=== PATIENT | female | born 2000 | race Two or more races ===

== ENCOUNTER 2020-03-25 15:30 | Emergency (ER) | payer MEDICAID ==
[~2020-03-25] VITALS: Ht 162.6 cm; Wt 63.5 kg
[2020-03-25 16:10] VITALS: BP 108/68
--- NOTE | 2020-03-25 16:20 | Emergency Room Report ---
History of Present Illness General Chief Complaint: Upper Respiratory Illness Source: Patient Present Illness HPI 20-year-old female presents to the emergency department complaining of dry persistent cough, sore throat and nasal congestion with pressure that she rates as 6 out of 10 severity x4 days. Patient reports initially she lost her voice but she now got it back. She reports hot flashes but denies having a measured fever. Patient reports she has an ill contact as her nephew had URI symptoms the week prior. Patient denies any significant past medical history she denies history of asthma, COPD or smoking. She reports she was tested for COVID-19 a week and a half ago and was negative. She reports some relief of her symptoms with [id number] NyQuil. She denies headache, photophobia, neck pain/stiffness. When not coughing, she denies having chest tightness at rest but reports several episodes yesterday with exertion but have improved since. She denies taking control or estrogen use. She denies tobacco use. She denies recent travel or immobilization. No other aggravating or relieving factors. She denies or suspicion of . Allergies: Coded Allergies: No Known Allergies (Unverified , 03/25/20) COVID-19 Screening Contact w/high risk pt: No Experienced COVID-19 symptoms?: Yes COVID-19 Testing performed DRAMATIC DIRECTOR: Yes COVID-19 Screening: Negative COVID-19 COVID-19 Testing Source: 03/15/20 Patient History Past Medical History: see triage record Past Surgical History: none Pertinent Family History: none Now: No Reviewed Nursing Documentation: PMH: Agreed; PSxH: Agreed Nursing Documentation-PMH Past Medical History: No Stated History Review of Systems All Other Systems: negative except mentioned in HPI Physical Exam Vital Signs Date Time Temp Pulse Resp B/P (MAP) Pulse Ox O2 Delivery O2 Flow Rate FiO2 03/25/20 15:40 99.1 110 20 108/68 (81) 95 Room Air Sp02 EP Interpretation: reviewed, normal General Appearance: no apparent distress, alert, GCS 15, non-toxic Head: normocephalic, atraumatic Eyes: bilateral eye normal inspection, bilateral eye PERRL ENT: hearing grossly normal, normal pharynx, normal voice, TMs + canals normal, uvula midline, pharyngeal erythema - no exudates Neck: full range of motion, no meningismus Respiratory: chest non-tender, lungs clear, normal breath sounds, no respiratory distress, no wheezing, speaking full sentences Cardiovascular #1: regular rate, rhythm Musculoskeletal: normal range of motion, gait/station normal, non-tender Neurologic: alert, motor strength/tone normal, oriented x3, sensory intact, responsive, speech normal Psychiatric: judgement/insight normal Skin: no rash, normal color Lymphatic: no adenopathy Medical Decision Making PA Attestation Dr. Arrington Is my supervising Physician whom patient management has been discussed with. Diagnostic Impression: Primary Impression: Viral upper respiratory tract infection with cough ER Course 20-year-old female presents to the emergency department complaining of dry persistent cough, sore throat and nasal congestion with pressure that she rates as 6 out of 10 severity x4 days. Patient reports initially she lost her voice but she now got it back. She reports hot flashes but denies having a measured fever. Patient reports she has an ill contact as her nephew had URI symptoms the week prior. Patient denies any significant past medical history she denies history of asthma, COPD or smoking. She reports she was tested for COVID-19 a week and a half ago and was negative. She reports some relief of her symptoms with gktj-hmm-rhrfrjw NyQuil. She denies headache, photophobia, neck pain/stiffness. When not coughing, she denies having chest tightness at rest but reports several episodes yesterday with exertion but have improved since. She denies taking control or estrogen use. She denies tobacco use. She denies recent travel or immobilization. No other aggravating or relieving factors. She denies or suspicion of . Ddx considered but are not limited to URI, pneumonia, PE, strep pharyngitis, meningitis, COVID-19 -Patient was evaluated yesterday at [facility] for the same symptoms and was discharged without any prescriptions. Patient provided results of lab reports showing normal D-dimer. Patient also reports she had EKG done which was normal and abnormal chest x-ray as well. Vital signs: Tachycardic, Pt.is afebrile VS are WNL H&PE are most consistent with Viral URI - no suspicion for bacterial infection or meningitis. Pt. not in acute respiratory distress. Wells criteria of 1.5 ( low risk) based on more likely alternative and not having any risk factors at this time. NO prior hx of DVT. Pt. just had work up at [facility] yesterday and produces copy of her labs showing negative troponin and D-dimer. Her VS were similar in values. ORDERS: X-ray was ordered but pt. declined as she just had one. ED INTERVENTIONS: None required at this time. This patient was evaluated in the context of the global COVID-19 pandemic, which necessitated consideration that the patient might be at risk for infection with the SARS-COV-2 virus that causes COVID-19. Institutional protocols and algorithms that pertaining to the evaluation of patients at risk for COVID-19 are in a state of rapid change based on information released by multiple regulatory bodies including the CDC and federal and state organizations. These policies and algorithms were followed during the patient's care in the emergency department DISCHARGE: At this time pt. is stable for d/c to home. Will provide printed patient care instructions, and any necessary prescriptions. Care plan and follow up instructions have been discussed with the patient prior to discharge. Last Vital Signs Date Time Temp Pulse Resp B/P (MAP) Pulse Ox O2 Delivery O2 Flow Rate FiO2 03/25/20 15:40 99.1 110 20 108/68 (81) 95 Room Air Disposition: HOME, SELF-CARE Condition: Stable Scripts Acetaminophen* (TYLENOL EXTRA STRENGTH*) 500 Mg Tablet 500 MG ORAL Q6H PRN for Mild Pain/Temp > 100.5, #20 TAB 0 Refills Prov: Sandy Wahl 03/25/20 Codeine/Promethazine Hcl* (PROMETHAZINE-CODEINE SYRUP*) 118 Ml Syrup 5 ML ORAL Q6H PRN for For Cough, #118 ML 0 Refills Prov: Sandy Wahl 03/25/20 Referrals: [facility] Patient Instructions: Upper Respiratory Infection, Adult Additional Instructions: Take medications as directed. Follow up with a Primary Care Provider in 3-5 days, even if your symptoms have resolved. --Please review list of primary care clinics, if you do not already have a primary care provider Return sooner to ED if new symptoms occur, or current symptoms become worse. - Please note that this Emergency Department Report was dictated using [employer] unit coordinator technology software, occasionally this can lead to erroneous entry secondary to interpretation by the dictation equipment. Sandy Wahl Mar 25, 2020 16:20
[2020-03-25] MEDS ORDERED: PROMETHAZINE-C118 M1 ORAL (16:23)
[2020-03-25] MEDS ORDERED: TYLENOL EXTRA500 MG ORAL (16:23)
--- NOTE | 2020-03-25 16:38 | NUR ---
ED Nurse Note: pt presented through her phone, electronic records of her cardiac workup (troponin, d-dimer, cbc, cmp) from her prev hospital visit yesterday. electronic record was seen and reviewed by MARIO and primary RN.
[2020-03-25 16:51] VITALS: BP 110/70
--- NOTE | 2020-03-25 16:51 | NUR ---
ER DISCHARGE NOTE: Patient is cleared to be discharged per ERPA, pt is aox4, on room air, with stable vital signs. pt was given dc and prescription instructions, pt was able to verbalize understanding, pt id band removed. pt is able to ambulate with steady gait. pt took all belongings.
== END 2020-03-25 16:51 | disposition home or self-care (01) ==
LOC: EMR 16:00
DX: J06.9 Acute upper respiratory infection, unspecified (principal); R05 Cough
CPT/HCPCS: 99282

== ENCOUNTER 2020-06-04 12:39 | Emergency (ER) | payer MEDICAID ==
[~2020-06-04] VITALS: Ht 162.6 cm; Wt 60.8 kg
[~2020-06-04 12:39] MED LIST: PROMETHAZINE-C118 M1 ORAL; TYLENOL EXTRA500 MG ORAL
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
[2020-06-04] MEDS ORDERED: ROBAXIN-750750 MG PO (13:27)
[2020-06-04] MEDS ORDERED: IBUPROFEN600 M1 ORAL (13:27)
[2020-06-04 13:44] VITALS: BP 110/63
--- NOTE | 2020-06-04 13:44 | NUR ---
ED Nurse Note: Pt cleared by health care Provider for discharge. DC instructions/prescription was given and explained to pt and verbalized understanding of teachings. All medical deviecs such as ID band removed. Pt is AAO x4, ambulatory and left with all personal belongings.
== END 2020-06-04 13:45 | disposition home or self-care (01) ==
LOC: EMR 13:19
DX: S33.5XXA Sprain of ligaments of lumbar spine, initial encounter (principal); S13.9XXA Sprain of joints and ligaments of unspecified parts of neck, initial encounter; V43.62XA Car passenger injured in collision with other type car in traffic accident, initial encounter; Y92.410 Unspecified street and highway as the place of occurrence of the external cause
CPT/HCPCS: 99281